=== PATIENT | male | born 1985 | race Caucasian/White ===

== ENCOUNTER 2023-12-28 07:02 | Outpatient (CLI) | payer BC, SELFPAY ==
--- OUTSIDE RECORDS SUMMARY | 2023-12-28 07:05 | XMS_ITS | Clinical Summary ---
Author Organization [employer] [facility] Address [place], [place] [address] Care Team Providers Care Water Taxi Ferry Operator Name Role Phone VotelMorales MD Primary Care Provider + Allergies No known active allergies Medications Medication Sig Dispensed Refills Start Date End Date Status metroNIDAZOLE (FLAGYL) 500 mg tabletIndications:Di verticulitis of colon Take 1 Tablet (500 mg) by mouth 3 times daily. 30 tablet. 07/24/2021 Active dextroamphetamine-am phetamine (ADDERALL XR) 20 mg Extended-Release capsule Take 20 mg by mouth once daily. 30mg daily 08/24/2023 Active escitalopram oxalate (Lexapro) 10 mg tablet Take 10 mg by mouth once daily. Active polyethylene glycol-electrolyte (GOLYTELY) 236-22.74-6.74 -5.86 gram suspensionIndication s:Encounter for screening colonoscopy Drink 2 liters the day before the procedure and 2 liters 6 hours prior to procedure. 4000 mL 12/16/2023 Active Hospital, Clinic, or Other Facility Administered Medication Ordered Dose Route Frequency Start Date End Date Status fentaNYL (PF) (SUBLIMAZE) 50 mcg/mL injection 100 mcgIndications:Chronic diarrhea 100 mcg IV ONE TIME 12/23/2023 12/23/2023 Ended midazolam (VERSED) injection 4 mgIndications:Chronic diarrhea 4 mg IV ONE TIME 12/23/2023 12/23/2023 Ended Active Problems Problem Noted Date Diagnosed Date CHIQUI 03/01/2015 AHI-5 03/12/2015 Onychomycosis 02/21/2015 Obesity (BMI 30.0-34.9) 02/21/2015 Loss of sense of smell 02/21/2015 Lower back injury 08/02/2012 Overview: Worker's compensation: 06/09/2012 Major depressive disorder, recurrent episode, mi ld 08/09/2007 Anxiety state, unspecified 08/09/2007 Encounters Date Type Department Care Team Description 12/23/2023 9:30 AM CDT Office Visit [facility] [address] [place] [address] Fredis Biggs MD Procedure (Colonoscopy) 12/23/2023 Travel 12/16/2023 Telephone [facility] [address] [place] [address] Fredis Biggs MD Appointment Reminder 11/23/2023 Telephone [facility] [address] [place] [address] Fredis Biggs MD PHARMACY - [facility] from Last 3 Months Immunizations Name Administration Dates Next Due Hepatitis B (Peds) 10/10/2003,02/24/2003, 003 Influenza Virus, Unspecified 06/26/2017 Influenza, IIV3 (Age 6-35 mos) 04/27/2016 Influenza, IIV4 04/30/2017 Influenza, IIV4 (=>6mos) MDV 05/13/2018 Tdap 09/08/2018,12/14/2007 Family History Medical History Relation Name Comments Hyperlipidemia Father Hypertension Father Other Mother crohns disease Relation Name Status Comments Brother 1 Alive Brother 2 Alive Father Alive Mother Alive Social History Tobacco Use Types Packs/Day Years Used Date Smoking Tobacco: Never Smokeless Tobacco: Never Tobacco Cessation:Counseling Given: Yes Alcohol Use Standard Drinks/Week Comments Yes 0 (1 standard drink = 0.6 oz pur e alcohol) PHQ-2 Answer Date Recorded PHQ-2 Score 2 09/12/2018 Social Connections Answer Date Recorded Frequency of Communication with Friends and Fami ly Not on file 09/24/2023 Financial Resource Strain Answer Date R ecorded Difficulty of Paying Living Expenses Not on file 07/24/2021 Difficulty of Paying Living Expenses Not on file 07/24/2021 Sex and Gender Information Value Date Recorded Sex Assigned at Not on file Gender Identity Not on file Sexual Orientation Not on file Obstetrics History Last Filed Vital Signs Vital Sign Reading Time Taken Comments Blood Pressure 96/56 12/23/2023 10:52 AM CDT Pulse 54 12/23/2023 10:52 AM CDT Temperature 36.6 ??C (97.9 ??F) 01/20/2019 10:07 AM C DT Respiratory Rate 16 12/23/2023 10:52 AM CDT Oxygen Saturation 96% 12/23/2023 10:52 AM CDT Inhaled Oxygen Concentration - - Weight 87.5 kg (193 lb) 09/24/2023 12:36 PM CDT Height 169.5 cm (5' 6.73) 09/08/2018 7:37 AM CS T Body Mass Index 30.47 09/08/2018 7:37 AM CONTROL SYSTEMS ENGINEER Plan of Treatment Health Maintenance Due Date Last Done Comments HIV for age 15-65 2002 Hepatitis C screening for ag e 18-79 2005 BMI (ht and wt on same day) for age 18+ 09/08/2019 09/08/2018, 08/07/2017 Depression screening for age 12+ 09/08/2019 09/08/2018 COVID-19 vaccine series ( season) 2023 Lipids for age 35-44 09/08/2023 09/08/2018, 06/20/2013 Influenza for age 9-49 03/13/2024 8, 06/26/2017, 04/30/2017 Tetanus booster 09/08/2028 09/08/2018, 12/14/2007 Tdap Completed 09/08/2018, 12/14/2007 Pneumococcal series for age 6-64 Aged Out No longer eligible b ased on patient's age to complete this topic Procedures Procedure Name Priority Date/Time Associated Diagnosis Comments PATH TISSUE EXAM Routine 12/23/2023 10:2 2 AM CDT Chronic diarrhea COLONOSCOPY 12/23/2023 9:48 AM CDT LIPID PANEL W REFLEX MEASURED LDL Routine 09/08/2018 9:07 AM CONTROL SYSTEMS ENGINEER Routine physical examination from Last 3 Months or Most Recently Relevant to Health Maintenance Results * PATH TISSUE EXAM (12/23/2023 10:22 AM CDT) Case Report Pathology Report ?Case: [id number] ? Authorizing Provider: ??Fredis Biggs MD ?? Collected: ? 12/23/2023 1022 ? Ordering Location: ? [facility] ?? Received: ?12/23/2023 1414 ? Clinic ? Pathologist: ? Lul Mehat MD ? Specimens: ?? A) - Colon Biopsy, random ? B) - Sigmoid Polyp ? 12/25/2023 9:54 AM CDT [facility] Final Diagnosis A) COLON, RANDOM, BIOPSY: 1. Normal colonic mucosa 2. Negative for microscopic, active, and chronic colitis B) COLON, SIGMOID, POLYPECTOMY: 1. Hyperplastic polyp 12/25/2023 9:54 AM CDT [facility] Clinical Information Mr. Lee is a 38 y.o. with diarrhea who undergoes colonoscopy. 1 polypectomy is performed and random biopsies are taken to evaluate for microscopic disease. 12/25/2023 9:54 AM CDT [facility] Gross Description A) Received in formalin are 8 segovia mucosal fragments averaging 2 mm in greatest dimension, which are entirely submitted in one cassette. It is labeled with the patient's name and designated A. B) Received in formalin is a segovia mucosal fragment measuring 2 mm in greatest dimension, which is entirely submitted in one cassette. It is labeled with the patient's name and designated B. Ashlie Hernandez 12/24/2023 10:59 AM 12/25/2023 9:54 AM CDT [facility] Microscopic Description The final diagnosis is based on microscopic examination of appropriate sections of all specimens. 12/25/2023 9:54 AM CDT [facility] Additional Information Interpreted at [facility] - [address] [place] [address] S[facility] [address], [place] [address] 12/25/2023 9:54 AM T [facility] Other (Colon Biopsy) Non-Blood / Unknown 12/23/2023 10:22 AM CDT 12/23/2023 2:14 PM CDT Specimen (specimen) (Sigmoid Polyp) Non-Blood / Unknown 12/23/2023 10:29 AM CDT 12/23/2023 2:14 PM CDT Fredis Biggs MD PATHOLOGY/CYTOLOG Y [facility] [address] [place] [address], * COLONOSCOPY (12/23/2023 9:48 AM CDT) 12/23/2023 9:48 AM CDT Narrative Transcriptions Fredis Biggs MD - 12/23/2023 10:46 AM CDT Patient Name: Cole Lee Procedure Date: 12/23/2023 Gender: Male Date of : 1985 Admit Type: Outpatient Procedure: Colonoscopy Proceduralist: Fredis Biggs MD , Ashley Pinto RN(Nurse), Renu Chen (Nurse) Indications/Pre-Op Diagnosis: Clinically significant diarrhea ofunexplained origin, Follow-up of diverticulitis Medications: Fentanyl 100 micrograms IV, Midazolam 4 mgIV, The level of sedation administered wasmoderate Procedure Description: The patient had risks, benefits and alternatives explained to andgave informed consent. The patient had a stable cardiopulmonary status and judged an adequate candidate for conscious sedation. The [id number] was passed through the anus and advanced to 6 cm into the ileum. The colonoscopy was performed without difficulty. The patient tolerated the procedure well. The quality of the bowel preparationwas good. The terminal ileum, ileocecal valve, appendiceal orifice, and rectum were photographed. Complications: No immediate complications. Estimated Blood Loss & Specimen: Estimated blood loss: none. 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 The terminal ileum appeared normal. A 2 mm polyp was found in the sigmoid colon. The polyp was sessile.The polyp was removed with a cold biopsy forceps. Resection and retrieval were complete. The exam was otherwise without abnormality. No diverticuli wereseen. Biopsies for histology were taken with a cold forceps from the entire colon for evaluation of microscopic colitis. 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 found on perianal exam. - The examined portion of the ileum was normal. - One 2 mm polyp in the sigmoid colon, removed with a cold biopsy forceps. Resected and retrieved. - The examination was otherwise normal. - Biopsies were taken with a cold forceps from the entire colon for evaluation of microscopic colitis. Recommendation: - Patient has a contact number available for emergencies. The signsand symptoms of potential delayed complications were discussed with the patient. Return to normal activities tomorrow. Written discharge instructions were provided to the patient. - Resume previous diet. - Continue present medications. - Await pathology results. - Repeat colonoscopy is recommended. The colonoscopy date will be determined after pathology results from today's exam become available for review. Moderate Sedation: A time out was performed before the procedure. Moderate (conscious) sedation was administered by the endoscopy nurse and supervised bythe endoscopist. The following parameters were monitored: oxygensaturation, heart rate, blood pressure, EKG, CO2, respiratory rate, adequacy of pulmonary ventilation and reponse to care. Please refer to the patient's medical record flowsheets and nursing notes for moderate sedation details. Total physician intraservice time was 23 minutes. Fredis Biggs MD 12/23/2023 10:46:28 AM This report has been signed electronically. Note Initiated On: 12/23/2023 9:48 AM Procedure Code(s): --- Professional --- 35224, Colonoscopy, flexible; with biopsy, single or multiple Diagnosis Code(s): --- Professional --- D12.5, Benign neoplasm of sigmoid colon R19.7, Diarrhea, unspecified K57.32, Diverticulitis of large intestine without perforation or abscess withoutbleeding CPT copyright 2022 [employer]. All rights reserved. The codes documented in this report are preliminary and upon supervisor cutting and sewing room reviewmay be revised to meet current compliance requirements. Scope In: 10:10:36 AM Scope Withdrawal Time 0 hours 16 minutes 3 seconds Scope Out: 10:30:10 AM Fredis Biggs MD PROCEDURE ORD * (ABNORMAL) LIPID PANEL W REFLEX MEASURED LDL (09/08/2018 9:07 AM CONTROL SYSTEMS ENGINEER) CHOLESTEROL,TOTAL 214(H) 100 - 199 mg/dL 09/08/2018 2:14 PM CONTROL SYSTEMS ENGINEER [facility] TRIGLYCERIDES 229(H) <150 mg/dL 09/08/2018 2:14 PM CONTROL SYSTEMS ENGINEER [facility] HDL CHOLESTEROL 35(L) >40 mg/dL 9 2:14 PM [facility] NON-HDL CHOLESTEROL 179(H) <145 mg/dl 09/08/2018 2:14 PM CONTROL SYSTEMS ENGINEER [facility] CHOL/HDL RATIO 6.11(H) <4.50 09/08/2018 2:14 PM CONTROL SYSTEMS ENGINEER [facility] LDL CHOLESTEROL 133(H) <=130 mg/dL 09/08/2018 2:14 PM CONTROL SYSTEMS ENGINEER [facility] PROVIDER ORDERED STATUS RANDOM 09/08/2018 2:14 PM CONTROL SYSTEMS ENGINEER [facility] Blood BLOOD SPECIMEN / Unknown Butterfly / Unknown 09/08/2018 9:07 AM CONTROL SYSTEMS ENGINEER 09/08/2018 9:07 AM CONTROL SYSTEMS ENGINEER Morales Valderrama MD CHEMISTRY [facility] [address] [place] [address], from Last 3 Months or Most Recently Relevant to Health Maintenance Additional Health Concerns Infection Onset Date Last Indicated CLOSTRIDIUM DIFFICILE 03/07/2019 03/07/2019 Care Teams Water Taxi Ferry Operator Relationship Specialty Start Date End Date Votel, Morales Cantrell MD [address] [place] [address] PCP - General Family Practice 09/08/18
--- NOTE | 2023-12-28 07:15 | CRLHL7_ITS ---
For Patients: As a result of the Century Cures Act, medical imaging exams and procedure reports are released immediately into your electronic medical record. You may view this report before your referring provider. If you have questions, please contact your health care provider. INDICATION: Anal abscess TECHNIQUE: Multiplanar imaging of the lower pelvis was performed without and with 17 cc of Dotarem contrast material IV. COMPARISON: None FINDINGS: No anal/perianal abscess is demonstrated. On the axial T2-weighted images and STIR images, a small focus of mildly increased signal is demonstrated in the left perianal region at the 5:30 radial, possibly representing a tiny focus of inflammation. The anus and rectum are otherwise negative. The other visualized bowel is unremarkable. The prostate is negative. No free fluid is demonstrated. IMPRESSION: Negative for anal/perianal abscess. Question tiny focus of perianal inflammation at the 5:30 radial. Dictated by Gm Espino MD @ 12/29/2023 5:59:57 AM (Electronically Signed)
== END 2023-12-28 07:03 | disposition home or self-care (01) ==
LOC: MRI 07:03
PROVIDERS: PCP Family Medicine; Visit Provider Surgery
DX: K61.0 Anal abscess (principal)
CPT/HCPCS: 72197; A9575

== ENCOUNTER 2024-09-08 07:58 | Outpatient (CLI) | payer BC, SELFPAY | END 2024-09-08 07:59 | disposition home or self-care (01) | LOC: NFLDREF 09-09 09:38 | PROVIDERS: PCP Family Medicine; Referring Provider Family Medicine; Visit Provider Family Medicine | DX: Z13.1 Encounter for screening for diabetes mellitus (principal); Z13.6 Encounter for screening for cardiovascular disorders | CPT/HCPCS: 80061; 82947 ==

== ENCOUNTER 2024-12-09 07:08 | Outpatient (CLI) | payer BC, SELFPAY ==
--- NOTE | 2024-12-09 07:15 | CRLHL7_ITS ---
For Patients: As a result of the Century Cures Act, medical imaging exams and procedure reports are released immediately into your electronic medical record. You may view this report before your referring provider. If you have questions, please contact your health care provider. EXAM: MRI OF THE RIGHT KNEE, WITHOUT CONTRAST CLINICAL INDICATION: Knee pain. Swelling. PRIOR SURGERY: None reported. COMPARISON PLAIN FILMS: 30 Nov 2024 COMPARISON CROSS-SECTIONAL IMAGING STUDIES: None available at time of interpretation. TECHNICAL: Axial, sagittal and coronal T1, PD, PD FS and T2 FS images. FINDINGS: OSSEOUS STRUCTURES: No fracture, marrow edema or marrow replacement process. JOINT SPACE AND CAPSULE: Effusion: No significant joint effusion or synovitis. Joint Bodies: None seen. CRUCIATE LIGAMENTS: Anterior Cruciate Ligament: Normal. Posterior Cruciate Ligament: Normal. EXTENSOR MECHANISM: Distal Quadriceps Tendon: Normal. Patellar Tendon: Normal. Medial Patellar Retinaculum and Medial Patellofemoral Ligament: Normal. Lateral Patellar Retinaculum: Normal. Normal patellar alignment. No patella yaakov. Normal trochlear depth. Normal lateral trochlear inclination. MEDIAL COLLATERAL LIGAMENT AND POSTEROMEDIAL CORNER COMPLEX: Medial Collateral Ligament: Normal. Medial Head of the Gastrocnemius and Semimembranosus Tendons: Normal. LATERAL COLLATERAL LIGAMENT COMPLEX AND POSTEROLATERAL CORNER COMPLEX: Fibular Collateral Ligament: Normal. Distal Biceps Femoris Tendon Complex: Normal. Iliotibial Band: Normal. Popliteus Tendon: Normal. Posterolateral Corner Capsule: Normal. MEDIAL COMPARTMENT: Medial Meniscus: Normal size and morphology without tear. Articular Cartilage: Articular surfaces appear smooth without focal articular cartilage defect or subchondral marrow changes. LATERAL COMPARTMENT: Lateral Meniscus: Normal size and morphology without tear. Articular Cartilage: Articular surfaces appear smooth without focal articular cartilage defect or subchondral marrow changes. PATELLOFEMORAL COMPARTMENT: Articular Cartilage: Articular surfaces appear smooth without focal articular cartilage defect or subchondral marrow changes. PERIARTICULAR SOFT TISSUES: Popliteal Cyst: No significant popliteal cyst. Periarticular Cysts or Ganglia: None. Bursae: Prominent lentiform heterogeneous fluid signal superficial to the mid to inferior patella and patellar tendon to the insertion. Hazy indistinct intermediate T1 signal and somewhat thick peripheral intermediate T1 margins. Greatest diameter 9 cm. Greatest depth 1.3 cm. Relatively sparse into intermediate thickness articular internal architecture. Surrounding tissue edema Musculature: No muscle atrophy or muscle edema. Subcutaneous and Soft Tissues: No subcutaneous or soft tissue mass, edema or fluid collection. Neurovascular Structures: Normal. IMPRESSION: 1. Hematoma favored over prominent superficial infrapatellar bursitis. 2. No internal derangement of menisci or ligaments. Dictated by Jann Garcia MD @ 12/09/2024 11:43:07 AM (Electronically Signed)
== END 2024-12-09 07:09 | disposition home or self-care (01) ==
PROVIDERS: PCP Family Medicine; Visit Provider Family Medicine
DX: M25.561 Pain in right knee (principal); M70.51 Other bursitis of knee, right knee
CPT/HCPCS: 73721

== ENCOUNTER 2024-12-19 09:47 | Day surgery (SDC) | payer BC, SELFPAY ==
[2024-12-19] VITALS (13 sets, daily range): BP systolic 90–108; BP diastolic 58–78; PULSE 56–77; RESP 16; TEMP 36.3–36.7; O2SAT 93–98; BMI 30.8
[2024-12-19] MEDS: SODIUM CHLORIDE 0.9 % (FLUSH) 10 ML SYRINGE IVF (10:30)
[2024-12-19] MEDS: LACTATED RINGERS 1000 ML 1,000 ML 100 ML IV ×2 (10:30→12:35)
--- NOTE | 2024-12-19 10:45 | W.PM.H&PU ---
History & Physical Update History & Physical Update H&P Reviewed and patient assessed: No changes noted
[2024-12-19] MEDS: CEFAZOLIN 1 GM inj IVP (11:20)
--- NOTE | 2024-12-19 12:14 | P.ORPRC_ITS ---
Procedure Note Date of procedure: 12/19/24 Procedure: PREOPERATIVE DIAGNOSIS: 1. Right knee prepatellar bursitis, recurrent, persistent POSTOPERATIVE DIAGNOSIS: 1. Right knee prepatellar bursitis, recurrent, persistent PROCEDURE: 1. Right knee open prepatellar bursectomy SURGEON: Con Frankel M.D. NEWSPAPER PRESS OPERATOR APPRENTICE: Mauri Levin PA-C. Of note, an assistant designer was critical for this case to aid in patient positioning, knee manipulation, instrument exchange, and closure. ANESTHESIA: Spinal EBL: 25ml TOURNIQUET: 30 min at 300 torr COMPLICATIONS: None evident INDICATIONS: The patient is a pleasant 39-year-old male who has sustained some minor trauma to the anterior portion of his knee but since then has had recurrent prepatellar bursitis development. This sac as created large amounts of fluid which is somewhat of a functional limitation with deep knee flexion. He has tried to have this aspirated multiple times without lasting success. Therefore, given the failure of nonsurgical management, surgery was indicated. FINDINGS: A large prepatellar bursitis with serosanguineous fluid was encountered. The fluid was relatively thin and mostly serous but did have slight blood-tinged appearance. Pseudo sac lining in this prepatellar bursa was encountered as would be expected. Patellar tendon otherwise intact as was the retinaculum on the medial and lateral aspects. DESCRIPTION OF PROCEDURE: After a thorough discussion of risks, benefits, and alternatives, the patient was brought to the operating room and placed upon the operating table. Induction of anesthesia was undertaken as previously noted. 2g iv Ancef was administered within 1 hr of incision preoperatively. Appropriate time-out was performed identifying proper patient, site, and procedure. The right lower extremity was prepped and draped in the appropriate sterile fashion using ChloraPrep. The limb was exsanguinated and tourniquet inflated. An anterior midline skin incision was made. Sharp incision through skin and subcutaneous tissue allowed us to penetrate into the prepatellar bursa. Immediately, the fluid was encountered and evacuated with suction we proceeded to excise the prepatellar bursa/pseudo sac throughout the entire spherical rim primarily with Bovie cautery being careful not to penetrate through the dermis. It peeled away from the patellar tendon and patella itself relatively smoothly, but was more integrated to the subcutaneous tissue otherwise. After excising this bursa the/pseudo sac, curette was also utilized to ensure complete debridement. At this point, the tourniquet was deflated and hemostasis achieved. Thorough irrigation normal saline was performed. Closure performed in layered fashion including space closure with # 0 Vicryl, then finally subcutaneous and subcuticular closure with 2-0 Stratafix and 4-0 Stratafix, respectively. PLAN: 1. Weightbear as tolerated operative extremity in knee brace locked straight. Crutch / walker ambulation assistance PRN. 2. Ice, acetominophen and/or ibuprofen, and Oxycodone for pain as needed. 3. Discontinue brace ~ 4 weeks. May occasionally come out of brace now for gentle knee range of motion and quad sets/straight leg raise regularly. Refrain from frequent knee ROM until after 4 weeks. 4. Follow up with PA visit in 1-2 weeks for a wound check and possibly to initiate physical therapy.
--- NOTE | 2024-12-19 12:23 | P.ANES_ITS ---
Anesthesia Charges Start Date/Time Anesthesia Start Date: 12/19/24 Anesthesia Start Time: 11:11 Stop Date/Time Anesthesia Stop Date: 12/19/24 Anesthesia Stop Time: 13:04 Coding CPT Codes CPT Codes: ANESTH KNEE AREA SURGERY - 23704 ([id number]) P2 - PATIENT W/MILD SYST DISEASE, QK - AEROTRIANGULATION SPECIALIST 2-4 CNCRNT ANES PROC, QX - STRAND AND BINDER CONTROLLER SVC W/ MD MED DIRECTION
--- NOTE | 2024-12-19 12:23 | W.ANESCHARGE ---
Anesthesia Charges Start Date/Time Anesthesia Start Date: 12/19/24 Anesthesia Start Time: 11:11 Stop Date/Time Anesthesia Stop Date: 12/19/24 Anesthesia Stop Time: 13:04 Coding CPT Codes CPT Codes: ANESTH KNEE AREA SURGERY - 91864 ([id number]) P2 - PATIENT W/MILD SYST DISEASE, QK - POTATO PANCAKE FRIER 2-4 CNCRNT ANES PROC, QX - SOCIAL WORKER HEALTH SERVICES SVC W/ MD MED DIRECTION
[2024-12-19] MEDS: BUPIVACAINE 0.5% 30 ML INJECTION (12:37)
[2024-12-19] MEDS: LIDOCAINE 1%-EPI 1:100,000 20 ML INFILTRATI (12:37)
--- NOTE | 2024-12-19 13:07 | P.ANES_ITS ---
Anesthesia Charges Start Date/Time Anesthesia Start Date: 12/19/24 Anesthesia Start Time: 11:11 Stop Date/Time Anesthesia Stop Date: 12/19/24 Anesthesia Stop Time: 13:04 Coding CPT Codes CPT Codes: ANESTH KNEE JOINT SURGERY - 67136 ([id number]) P2 - PATIENT W/MILD SYST DISEASE, QK - DIELECTRIC TESTING MACHINE OPERATOR 2-4 CNCRNT ANES PROC, QX - DIRECTOR RECREATION CENTER SVC W/ MD MED DIRECTION
--- NOTE | 2024-12-19 13:07 | W.ANESCHARGE ---
Anesthesia Charges Start Date/Time Anesthesia Start Date: 12/19/24 Anesthesia Start Time: 11:11 Stop Date/Time Anesthesia Stop Date: 12/19/24 Anesthesia Stop Time: 13:04 Coding CPT Codes CPT Codes: ANESTH KNEE JOINT SURGERY - 85146 ([id number]) P2 - PATIENT W/MILD SYST DISEASE, QK - ROTATIONAL MOULDING OPERATOR 2-4 CNCRNT ANES PROC, QX - ROUGHER OPERATOR SVC W/ MD MED DIRECTION
[2024-12-19] MEDS: fentaNYL 100 MCG/2 ML inj 50 MCG IVP (13:19)
[2024-12-19] MEDS: OXYCODONE 5 MG TABLET PO (14:40)
[2024-12-19] MEDS: ACETAMINOPHEN 325 MG TABLET PO (14:40)
--- NOTE | 2024-12-19 15:34 | SUR.PHASEII ---
Pt doing well. Reviewed knee brace instructions- locking/unlocking with pt and . All questions answered. Pt tolerated crackers and Sprite without difficulty. Pt rated pain after oxycodone and Tylenol 5/10. Wheelchair out to car with RN and .
== END 2024-12-19 15:36 | disposition home or self-care (01) ==
PROVIDERS: PCP Family Medicine; Visit Provider Orthopaedic Surgery Sports Medicine
PROC: (CPT 27340; principal; 2024-12-19 11:00)
DX: M70.41 Prepatellar bursitis, right knee (principal)
CPT/HCPCS: 27340; 01320; 01400; A9270; J0665; J0690; J1100; J1885; J2250; J2405; J2704; J3010; J7120; L1833

== ENCOUNTER 2025-02-28 07:30 | Outpatient (RCR) | payer BC, SELFPAY | END 2025-05-09 14:21 | disposition home or self-care (01) | PROVIDERS: PCP Family Medicine; Visit Provider Physician Assistant Surgical | DX: Z48.89 Encounter for other specified surgical aftercare (principal); M25.561 Pain in right knee; Z51.89 Encounter for other specified aftercare | CPT/HCPCS: 97110; 97112; 97116; 97161 ==